=== PATIENT | male | born 1950 | race Caucasian/White ===

== ENCOUNTER 2021-07-25 22:03 | Emergency (ER) | payer MEDICARE, SELFPAY ==
[2021-07-25 22:06] VITALS: BP 157/78; PULSE 99; RESP 17; TEMP 36.2; O2SAT 99
[2021-07-25] MEDS: TETANUS,DIPHTHERIA,AC PERTUSSIS ADULT (0.5 ML) BOOSTRIX IM (23:20)
[2021-07-26 00:24] VITALS: BP 120/67; PULSE 87; RESP 14; O2SAT 96
--- NOTE | 2021-07-26 00:42 | ED.WOUNDLAC ---
HPI - Wound/Laceration General Chief Complaint: Wound/Laceration <LALO Quiroz Last Filed: 07/26/21 02:58> Stated Complaint: left finger laceration <LALO Quiroz Last Filed: 07/26/21 02:58> Time Seen by Provider: 07/25/21 22:12 <LALO Quiroz Last Filed: 07/26/21 02:58> History of Present Illness HPI narrative: 70-year-old [id number] male who presents the emergency department with a laceration to his left second digit 30 minutes prior to arrival. He states he was opening a can of potatoes and the metal top accidentally scraped his finger. He was unable to control the bleeding, so he presented the emergency department. He denies any difficulty moving his finger, numbness or tingling in this digit. States the metal can was clean and intact and did not have any fragments. Tetanus not up-to-date. No blood thinner use. No other injuries sustained in the accident. <LALO Quiroz Last Filed: 07/26/21 02:58> Related Data Home Medications: Home Medications Medication Instructions Recorded Confirmed allopurinol [Zyloprim] 300 mg PO DAILY 04/16/19 04/16/19 amlodipine-benazepril [Lotrel] 5 - 20 cap PO DAILY 04/16/19 04/16/19 budesonide-formoterol [Symbicort] 80 inh INHALATION DAILY 04/16/19 04/16/19 doxycycline hyclate 100 mg PO DAILY 04/16/19 04/16/19 fenofibrate nanocrystallized 145 mg PO DAILY 04/16/19 04/16/19 [Tricor] furosemide [Lasix] 40 mg PO DAILY 04/16/19 04/16/19 <LALO Quiroz Last Filed: 07/26/21 02:58> Allergies/Adverse Reactions: Allergies Allergy/AdvReac Type Severity Reaction Status Date / Time No Known Allergies Allergy Verified 07/25/21 22:09 <LALO Quiroz Last Filed: 07/26/21 02:58> Review of Systems Review of Systems: Gen.: Denies fevers or chills Eyes: Denies eye pain or visual change ENT: Denies congestion Respiratory: Denies shortness of breath or cough CV: Denies chest pain or palpitations GI: Denies abdominal pain nausea, emesis or diarrhea denies burning, urgency, frequency or hematuria Musculoskeletal: Denies back pain or muscle pain, numbness or tingling in fingers Neuro: Denies numbness, tingling, weakness or focal weakness Skin: Reports laceration. Denies rash Except as documented, all other systems reviewed and negative <Hilda Marks PA-C - Last Filed: 07/26/21 02:58> All systems reviewed & are unremarkable except as noted in HPI and below <Hilda Marks PA-C - Last Filed: 07/26/21 02:58> [facility] Past Medical History Medical History: Medical History Alcohol use Asthma Hypertension <Hilda Marks PA-C - Last Filed: 07/26/21 02:58> Social History Social History: Social History Gender identity (if verbalized by the patient): Male <Hilda Marks PA-C - Last Filed: 07/26/21 02:58> Exam Narrative: Gen: Alert, oriented, no acute distress Eyes: EOMI, no icterus Pulm: Respirations even and unlabored, symmetric thorax expansion, no audible stridor or visible cyanosis CV: 2+ radial pulses bilaterally. GI: No distension, no voluntary/involuntary guarding Neuro: Sensation intact to entire hand. AOx4, moves all extremities without apparent difficulty or weakness, follows commands MSK: Patient has full active range of motion in his fingers and hand. Skin: Patient has a 1 and half centimeter laceration to his left second digit just proximal and linear to the proximal interphalangeal joint. Laceration does not cross the joint line. Psych: Normal mood/affect, insight/judgement good, adequate fund of knowledge, recent/remote memory intact <Hilda Marks PA-C - Last Filed: 07/26/21 02:58> Course Course Emergency Course: Dr. John Hodge was assigned to this patient e
== END 2021-07-26 00:25 | disposition home or self-care (01) ==
PROVIDERS: Emergency Provider Emergency Medicine; PCP Internal Medicine
DX: S61.211A Laceration without foreign body of left index finger without damage to nail, initial encounter (principal); Z23 Encounter for immunization; J45.909 Unspecified asthma, uncomplicated; I10 Essential (primary) hypertension; W26.8XXA Contact with other sharp object(s), not elsewhere classified, initial encounter
CPT/HCPCS: 12001; 90471; 90715; 99282

== ENCOUNTER 2022-08-19 10:00 | Outpatient (RCR) | payer MEDICARE, SELFPAY ==
--- NOTE | 2022-06-23 10:44 | PTOPEVAL1 ---
Assessment and note entered by Shirlene Villeda, PT, DPT Evaluation Information Assessment Status Evaluation Diagnosis cervicalgia with radiculopathy Subjective Information Pt states since Jan, he has been having numbness in his R hand and pain in his R biceps. Pt states he has minor pain in his neck but has been told he has a pinched nerve somewhere around his C5-6. Reported Pain Level Pain Score 3: Self Report Assessment PT Clinical Summary Des presents to therapy today for his initial evaluation with a diagnosis of cervicalgia with peripheral neuropathy in his R > L hand. Today he demonstrates active and passive cervical ROM in all direction, as well as a forward head with cervical hyperextension and increased thoracic kyphosis. He reports a decrease in peripheral symptoms with manual cervical distraction this date. Skilled physical therapy services are indicated to improve cervical ROM, improve postural and body awareness, to decreased peripheral symptoms, and to return to baseline function. Plan of Care Interventions Electrical Stimulation,Hot Pack/Cold Pack,Manual Therapy,Mechanical Traction,Neuro Re-education, Patient/Caregiver Educati,Prosthetic Training,Self -Care/Home Management PT Services Indicated Yes Treatment Frequency and 2x/wk for 4 wks Duration These treatments will address the objective and functional deficits as defined above. The patient will be advanced safely and appropriately in order for the patient to progress towards his/her prior level of function. Additional exercises will be introduced and as well as a comprehensive home exercise program upon discharge, if needed, ?to ensure carryover of functional gains achieved in the clinic. This treatment plan has been reviewed and agreement upon by the patient.
--- NOTE | 2022-07-23 10:48 | PTOPPROG ---
Assessment and note entered by Shirlene Villeda, PT, DPT Evaluation Information Assessment Status Progress Diagnosis cervicalgia with radiculopathy Subjective Information Pt states his L hand is about 80% back to normal and his R hand is about 60-70% back to normal. He states his no longer numb, just still tingly at times. He states his fine motor skills have improved on his R as well. Assessment PT Clinical Summary Des presents to therapy today for his progress report following 7 visits of skilled therapy to treat his neck pain with radiculopathy. Today he reports 60-70% improvement in his sensation. He demonstrates improvements in his cervical ROM but this is still decreased from normal values. He continues to requires cueing throughout treatments to correct his posture. Continuation of skilled therapy services are indicated to continue progress ROM, body mechanics, postural awareness, and for a return to baseline function. Plan of Care Interventions Electrical Stimulation,Hot Pack/Cold Pack,Manual Therapy,Mechanical Traction,Neuro Re-education, Patient/Caregiver Educati,Prosthetic Training,Self -Care/Home Management PT Services Indicated Yes Treatment Frequency and 1-2x/wk for 4 wks Duration These treatments will address the objective and functional deficits as defined above. The patient will be advanced safely and appropriately in order for the patient to progress towards his/her prior level of function. Additional exercises will be introduced and as well as a comprehensive home exercise program upon discharge, if needed, ?to ensure carryover of functional gains achieved in the clinic. This treatment plan has been reviewed and agreement upon by the patient.
--- NOTE | 2022-08-10 10:36 | PCPTNOTE ---
Patient called & cancelled scheduled appointment this date due to having a dentist appointment.
--- NOTE | 2022-08-19 10:29 | PTOPDC ---
Assessment and note entered by Shirlene Villeda, PT, DPT Evaluation Information Assessment Status Discharge Diagnosis cervicalgia with radiculopathy Subjective Information Pt states he is so much better than when he started. He states his neck is no longer painful, he has no more throbbing pains in his arms, and his numbness and tingling has improved significantly. He reports no pain medication in the last 2 weeks. He reports 85% improvement in his L hand, and 80% in the R hand. 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 Reported Pain Level Pain Score 1,1: Self Report Assessment PT Clinical Summary Des presents to therapy today for his progress report following 14 visits of skilled therapy to treat his neck pain with radiculopathy. Today he reports 80-85%% improvement in his sensation. His cervical ROM continues to progress slowly and is still slightly decreased from normal. He reports feeling okay to do his exercises on his own to keep progressing and to avoid symptoms starting again. He will be discharged from skilled therapy services at this time. Plan of Care PT Services Indicated No
== END 2022-08-19 10:41 | disposition home or self-care (01) ==
LOC: ANHGOSHPT 10:00
PROVIDERS: PCP Family Medicine; Visit Provider Nurse Practitioner Family
DX: M54.2 Cervicalgia (principal); R20.0 Anesthesia of skin; R20.2 Paresthesia of skin
CPT/HCPCS: 97110; 97112; 97140; 97161

== ENCOUNTER 2024-01-03 10:43 | Outpatient (CLI) | payer MEDICARE, SELFPAY ==
[2024-01-03 13:32] LABS: Basophils Absolute Auto 0.1 K/mm3 (0.0-0.1); Basophils Percent Auto 0.8 % (0.2-1.2); Eosinophils Absolute Auto 0.3 K/mm3 (0-0.3); Eosinophils Percent Auto 2.5 % (0-4.4); Hematocrit 43.5 % (42.0-52.0); Hemoglobin 14.2 g/dL (14.0-18.0); Immature Granulocyte Absolute 0.11 K/mm3 (0.00-0.031); Lymphocytes Absolute Auto 1.61 K/mm3 (0.9-3.2); Lymphocytes Percent Auto 15.1 % (18.3-44.2); Mean Corpuscular HGB Conc 32.6 g/dl (32-36); Mean Corpuscular Hemoglobin 30.4 pg (26-34); Mean Corpuscular Volume 93.1 fl (80-100); Mean Platelet Volume 9.1 fl (7.4-10.4); Monocytes Absolute Auto 0.8 K/mm3 (0.1-0.6); Monocytes Percent Auto 7.9 % (2.6-8.5); Neutrophils Absolute Auto 7.7 K/mm3 (1.3-6.7); Neutrophils Percent Auto 72.7 % (45.5-73.1); Platelet Count Result 383 k/mm3 (150-375); Red Blood Count 4.67 M/mm3 (4.6-6.20); Red Cell Distribution Width 12.8 % (11.5-14.5); White Blood Count 10.7 K/mm3 (4.5-10.0)
[2024-01-03 13:42] LABS: Potassium 4.3 mmol/L (3.4-5.0)
[2024-01-03 13:53] LABS: LDL Cholesterol Direct 95 mg/dL
[2024-01-03 13:59] LABS: Alanine Aminotransferase 28 U/L (6-50); Albumin Level 4.4 g/dL (3.5-5.1); Alkaline Phosphatase 95 U/L (38-126); Anion Gap 9 mmol/L (4-12); Aspartate Amino Transferase 57 U/L (17-59); Bilirubin,Total 0.7 mg/dL (0.2-1.3); Blood Urea Nitrogen 19 mg/dL (9-20); Carbon Dioxide 27 mmol/L (22-30); Chloride 93 mmol/L (98-107); Cholesterol 164 mg/dL (0-200); Estimated Glomerular Filt Rate 54; Glucose 130 mg/dL (65-110); HDL Direct 39 mg/dL; Sodium 129 mmol/L (137-145); Triglycerides 133 mg/dL (<150)
[2024-01-03 14:12] LABS: Prostate Specific Antigen 1.8 ng/mL (< OR = 4.0)
[2024-01-03 14:24] LABS: Microalbumin Urine Random 7.9 mg/L (0-16.7)
[2024-01-03 14:35] LABS: Creatinine Urine 115.4 mg/dL; MALB Creatinine Ratio 6.8 mg/g (0-30)
[2024-01-03 17:07] LABS: Hemoglobin A1C 7.1 % (<5.7)
== END 2024-01-03 10:44 | disposition home or self-care (01) ==
PROVIDERS: PCP Clinical Nurse Specialist; Visit Provider Clinical Nurse Specialist
DX: E11.9 Type 2 diabetes mellitus without complications (principal); E78.5 Hyperlipidemia, unspecified; I10 Essential (primary) hypertension; Z12.5 Encounter for screening for malignant neoplasm of prostate
CPT/HCPCS: 36415; 80053; 80061; 82043; 83036; 84153; 85025; G0103

== ENCOUNTER 2024-01-10 09:40 | Outpatient (CLI) | payer MEDICARE, SELFPAY ==
[2024-01-10 14:06] LABS: Basophils Absolute Auto 0.1 K/mm3 (0.0-0.1); Basophils Percent Auto 0.9 % (0.2-1.2); Eosinophils Absolute Auto 0.2 K/mm3 (0-0.3); Eosinophils Percent Auto 2.2 % (0-4.4); Hematocrit 42.1 % (42.0-52.0); Hemoglobin 13.5 g/dL (14.0-18.0); Immature Granulocyte Absolute 0.12 K/mm3 (0.00-0.031); Immature Granulocyte Percent A 1.2 % (0-0.5); Lymphocytes Absolute Auto 1.37 K/mm3 (0.9-3.2); Lymphocytes Percent Auto 13.6 % (18.3-44.2); Mean Corpuscular HGB Conc 32.1 g/dl (32-36); Mean Corpuscular Hemoglobin 29.7 pg (26-34); Mean Corpuscular Volume 92.5 fl (80-100); Monocytes Absolute Auto 0.9 K/mm3 (0.1-0.6); Monocytes Percent Auto 8.6 % (2.6-8.5); Neutrophils Absolute Auto 7.4 K/mm3 (1.3-6.7); Neutrophils Percent Auto 73.5 % (45.5-73.1); Platelet Count Result 423 k/mm3 (150-375); Red Blood Count 4.55 M/mm3 (4.6-6.20); Red Cell Distribution Width 12.6 % (11.5-14.5); White Blood Count 10.1 K/mm3 (4.5-10.0)
[2024-01-10 14:18] LABS: Anion Gap 10 mmol/L (4-12); Blood Urea Nitrogen 17 mg/dL (9-20); Calcium 10.2 mg/dL (8.4-10.2); Carbon Dioxide 26 mmol/L (22-30); Chloride 101 mmol/L (98-107); Estimated Glomerular Filt Rate 54; Glucose 132 mg/dL (65-110); Potassium 4.5 mmol/L (3.4-5.0); Sodium 137 mmol/L (137-145)
[2024-01-10 16:09] LABS: Hemoglobin A1C 6.8 % (<5.7)
== END 2024-01-10 09:41 | disposition home or self-care (01) ==
LOC: ANHGOSHLAB 09:41
PROVIDERS: PCP Clinical Nurse Specialist; Visit Provider Clinical Nurse Specialist
DX: N28.9 Disorder of kidney and ureter, unspecified (principal); D72.829 Elevated white blood cell count, unspecified; E11.9 Type 2 diabetes mellitus without complications; I10 Essential (primary) hypertension
CPT/HCPCS: 36415; 80048; 83036; 85025

== ENCOUNTER 2024-03-28 08:30 | Emergency (ER) | payer MEDICARE, SELFPAY ==
[2024-03-28 08:42] VITALS: BP 138/54; PULSE 103; RESP 16; TEMP 36.4; O2SAT 100
--- NOTE | 2024-03-28 08:57 | ED.EXTPRO ---
HPI - Extremity Problem General Chief complaint: Extremity Problem,Nontraumatic Stated complaint: Swollen Right Leg Time Seen by Provider: 03/28/24 08:49 Source: patient and RN notes reviewed Mode of arrival: ambulatory Limitations: no limitations History of Present Illness HPI Narrative: Patient presents today complaining sponginess in the bilateral knees x1 month with right knee swelling x4 days. Denies injury or trauma. He had taken some ibuprofen but read that it could make him to retain fluid so stopped this. Related Data Home Medications ?Medication ?Instructions ?Recorded ?Confirmed ?Last Taken ?Type acyclovir 5 % topical cream 1 applic topical ONCE 12/28/23 02/07/24 Unknown History (Zovirax) fexofenadine 60 mg tablet (Maria L 60 mg PO Q12H 12/28/23 02/07/24 Unknown History Allergy) multivitamin 1 tablet PO DAILY 12/28/23 02/07/24 Unknown History Allergies Allergy/AdvReac Type Severity Reaction Status Date / Time No Known Allergies Allergy Verified 03/28/24 08:42 Review of Systems Review of Systems: CONSTITUTIONAL: Denies body aches, fever, chills, or sweats. EYES: Denies visual changes, redness, or discharge. ENT: Denies rhinorrhea, congestion, sore throat, or otalgia. CARDIOVASCULAR: Denies chest pain, palpitations, or edema. RESPIRATORY: Denies cough or dyspnea. GASTROINTESTINAL: Denies abdominal pain, nausea, vomiting, or diarrhea. GENITOURINARY: Denies dysuria or hematuria. SKIN: Denies rash, itching, or wounds. MUSCULOSKELETAL: Denies back pain, or myalgia.+ right knee pain and swelling NEUROLOGIC: Denies headache, numbness, tingling, or weakness. PSYCH: Denies depression or anxiety. [facility] Past Medical History Medical History Hypertriglyceridemia Basal cell carcinoma Abnormal skin growth Allergies Alcohol use Asthma Hypertension Family History Family History Father Heart disease Mother Cerebrovascular accident Social History Social History Social History: Caffeine-coffee/tea Smoking status: Unknown if ever smoked Alcohol intake: current Alcohol use details: rarely Substance use: never Substance use type: does not use Do You Feel Safe in your Home?: Yes Lack of Transportation: No Lack of Food: Never True Current Housing: I Have Housing Concerned About Future Housing: No Difficulty Paying Gas/Electric Bills: No Difficulty Paying for Meds: No Currently Unemployed: No Education: Associate Degree Difficulty w/ Childcare or Family Care: No Living arrangements: with family Occupation/Education: retired Gender identity (if verbalized by the patient): Male Sexual Orientation (if Verbalized by the Patient): Straight or Heterosexual Comments At time of signature, I have reviewed and agree with nursing past medical, surgical, social and family history unless otherwise noted. Please see nursing chart for further information. There is no relevant family history pertinent to the presenting complaint Exam Narrative: GENERAL: Well-appearing, well-nourished, and in no acute distress. HEAD: Normocephalic, atraumatic. EYES: EOMI. No redness or drainage. Conjunctivae normal. ENT: Mucous membranes pink and moist. NECK: Normal AROM. CHEST: No respiratory distress. EXTREMITIES: Right knee: Obvious knee effusion noted. No redness noted. Full range of motion of the knee noted with some increased pain. Distal sensation diminished, but baseline for patient due to neuropathy. Posterior tibial pulse SKIN: Warm, dry, no rash. Capillary refill normal. Normal skin turgor. NEURO: No focal deficits. Alert and oriented x3. Gait steady. PSYCH: Normal affect. No signs of depression or anxiety. Course Course Level of Care: Express Care Visit Vital Signs Vital signs: Vital Signs Temperature 97.6 F 03/28/24 08:42 Pulse Rate 103 H 03/28/24 08:42 Respiratory Rate 16 03/28/24 08:42 Blood Pressure 138/54 L 03/28/24 08:42 Pulse Oximetry 100 03/28/24 08:42 Temperature 97.6 F 03/28/24 08:42 Pulse Rate 103 H 03/28/24 08:42 Respiratory Rate 16 03/28/24 08:42 Blood Pressure 138/54 L 03/28/24 08:42 Pulse Oximetry 100 03/28/24 08:42 Reviewed MDM - Extremity (Nontraumatic) MDM Narrative Medical decision making narrative: Patient has obvious knee effusion. Recommend PCP or orthopedic follow-up for further evaluation and treatment. Anticipatory guidance given Differential Diagnosis Differential diagnosis: Likely other (Osteoarthritis, knee effusion, Paulino cyst) Critical Care Time Critical Care Time Critical Care Time: No Discharge Plan Discharge Clinical Impression: Knee effusion, right Patient Disposition: Home, Self-Care Condition: Stable Instructions: Swollen Knee Joint (ED) Additional Instructions: You have a fluid collection in your right knee joint. Please ice and elevate your knee. Rest and schedule a follow-up visit with your PCP or orthopedic physician for further evaluation and treatment. Continue your Lasix as prescribed. Take Tylenol for pain. Your blood pressure was elevated above 120/80 today at Urgent Care. This puts you above the threshold for follow up. Please schedule a followup visit with your personal physician as soon as possible, for further evaluation and treatment. Even blood pressure exceeding 120/80 may indicate pre-hypertension. Patient Language: Latvian Prescriptions: No Action budesonide-formoterol [Symbicort] 80-4.5 mcg/actuation HFA aerosol inhaler 2 puff inhalation Q12H Qty: 10.2 1RF sildenafil 100 mg tablet 100 mg PO DAILY PRN (Reason: sexual activity) Qty: 14 0RF Rx Instructions: administer 30 minutes to 4 hours before activity multivitamin Tablet 1 tablet PO DAILY fexofenadine [Maria L Allergy] 60 mg tablet 60 mg PO Q12H acyclovir [Zovirax] 5 % cream 1 applic topical ONCE allopurinol 300 mg tablet 300 mg PO DAILY Qty: 90 1RF amlodipine-benazepril [Lotrel] 5-20 mg capsule 1 cap PO DAILY Qty: 90 1RF fenofibrate nanocrystallized [Tricor] 145 mg tablet 145 mg PO DAILY Qty: 90 1RF rosuvastatin [Crestor] 20 mg tablet 20 mg PO DAILY Qty: 90 1RF Rx Instructions: Dose increased. furosemide 20 mg tablet 20 mg PO QAM Qty: 90 1RF Follow-up/Referrals: Hayder Evans MD [Physician] - Sobeida Montez FNP-C [Primary Care Provider] - Time of Disposition: 09:01
== END 2024-03-28 09:06 | disposition home or self-care (01) ==
PROVIDERS: Emergency Provider Nurse Practitioner; PCP Clinical Nurse Specialist
DX: M25.461 Effusion, right knee (principal); E78.1 Pure hyperglyceridemia; I10 Essential (primary) hypertension; J45.909 Unspecified asthma, uncomplicated; Z85.828 Personal history of other malignant neoplasm of skin
CPT/HCPCS: 99211; G0463

== ENCOUNTER 2024-03-30 10:35 | Outpatient (CLI) | payer MEDICARE, SELFPAY ==
--- NOTE | ~2024-03-30 | XR_ITS ---
XR knee RT 3V 03/30/2024 10:52 Indication: Right knee pain Procedure: 3 views right knee Comparison: No prior studies for comparison. Findings: Mild tricompartment osteoarthritis. Small joint effusion. No fracture, subluxation or dislo cation. Impression: 1: Mild osteoarthritis of the right knee. Reviewed, dictated and finalized at location B. [employer] Impression: 1: Mild osteoarthritis of the right knee.
== END 2024-03-30 10:36 | disposition home or self-care (01) ==
LOC: GOSHIMG 10:36
PROVIDERS: PCP Internal Medicine; Visit Provider Clinical Nurse Specialist
DX: M17.11 Unilateral primary osteoarthritis, right knee (principal)
CPT/HCPCS: 73562

== ENCOUNTER 2024-04-05 16:19 | Outpatient (NON) | payer MEDICARE, SELFPAY ==
[2024-04-05 17:38] LABS: Appearance Synovial Fluid Cloudy (Clear); Color Synovial Fluid Red (Colorless); Lymphocytes Synovial Fluid 20 %; Neutrophils Synovial Fluid 80 % (0-25); Nucleated Cell Synovial Fluid 6199 /uL (0-200); RBC Synovial Fluid 60000 /uL (0-0); Source Synovial Fluid Rt Knee Syn Fluid
[2024-04-05 17:48] LABS: Crystals Synovial Fluid None Seen (None Seen)
== END 2024-04-05 16:20 | disposition home or self-care (01) ==
LOC: ANHLAB 16:20
PROVIDERS: PCP Clinical Nurse Specialist; Visit Provider Orthopaedic Surgery
DX: M17.11 Unilateral primary osteoarthritis, right knee (principal)
CPT/HCPCS: 89051; 89060

== ENCOUNTER 2024-04-06 11:05 | Outpatient (CLI) | payer MEDICARE, SELFPAY ==
[2024-04-06 12:08] LABS: Uric Acid 4.6 mg/dL (3.5-8.5)
== END 2024-04-06 11:06 | disposition home or self-care (01) ==
LOC: ANHGOSHLAB 11:07
PROVIDERS: PCP Clinical Nurse Specialist; Visit Provider Orthopaedic Surgery
DX: M25.561 Pain in right knee (principal); M25.461 Effusion, right knee; M17.11 Unilateral primary osteoarthritis, right knee
CPT/HCPCS: 36415; 84550

== ENCOUNTER 2024-04-27 10:26 | Outpatient (CLI) | payer MEDICARE, SELFPAY ==
[2024-04-27 17:48] LABS: Basophils Absolute Auto 0.1 K/mm3 (0.0-0.1); Eosinophils Absolute Auto 0.2 K/mm3 (0-0.3); Eosinophils Percent Auto 2.2 % (0-4.4); Hematocrit 40.2 % (42.0-52.0); Hemoglobin 12.7 g/dL (14.0-18.0); Immature Granulocyte Absolute 0.16 K/mm3 (0.00-0.031); Immature Granulocyte Percent A 1.6 % (0-0.5); Lymphocytes Absolute Auto 1.73 K/mm3 (0.9-3.2); Lymphocytes Percent Auto 17.7 % (18.3-44.2); Mean Corpuscular HGB Conc 31.6 g/dl (32-36); Mean Corpuscular Hemoglobin 28.1 pg (26-34); Mean Corpuscular Volume 88.9 fl (80-100); Mean Platelet Volume 8.9 fl (7.4-10.4); Monocytes Absolute Auto 0.7 K/mm3 (0.1-0.6); Monocytes Percent Auto 7.4 % (2.6-8.5); Neutrophils Absolute Auto 6.9 K/mm3 (1.3-6.7); Neutrophils Percent Auto 70.1 % (45.5-73.1); Platelet Count Result 430 k/mm3 (150-375); Red Blood Count 4.52 M/mm3 (4.6-6.20); Red Cell Distribution Width 15.7 % (11.5-14.5); White Blood Count 9.8 K/mm3 (4.5-10.0)
[2024-04-27 18:30] LABS: Anion Gap 11 mmol/L (4-12); Blood Urea Nitrogen 15 mg/dL (9-20); Calcium 10.1 mg/dL (8.4-10.2); Carbon Dioxide 28 mmol/L (22-30); Chloride 100 mmol/L (98-107); Estimated Glomerular Filt Rate > 60; Glucose 121 mg/dL (65-110); Potassium 4.4 mmol/L (3.4-5.0); Sodium 139 mmol/L (137-145)
[2024-04-27 20:17] LABS: Hemoglobin A1C 6.6 % (<5.7)
== END 2024-04-27 10:27 | disposition home or self-care (01) ==
LOC: ANHGOSHLAB 10:27
PROVIDERS: PCP Clinical Nurse Specialist; Visit Provider Clinical Nurse Specialist
DX: D72.829 Elevated white blood cell count, unspecified (principal); I10 Essential (primary) hypertension; N28.9 Disorder of kidney and ureter, unspecified; E11.9 Type 2 diabetes mellitus without complications
CPT/HCPCS: 36415; 80048; 83036; 85025

== ENCOUNTER 2025-01-03 10:39 | Outpatient (CLI) | payer MEDICARE, SELFPAY ==
[2025-01-03 17:20] LABS: Hematocrit 39.1 % (42.0-52.0); Hemoglobin 12.4 g/dL (14.0-18.0); Immature Granulocyte Percent A 1.6 % (0-0.5); Lymphocytes Absolute Auto 1.43 K/mm3 (0.9-3.2); Mean Corpuscular HGB Conc 31.7 g/dl (32-36); Mean Corpuscular Hemoglobin 27.2 pg (26-34); Mean Corpuscular Volume 85.7 fl (80-100); Nucleated Red Blood Cells Absolute Auto 0.000 K/mm3 (0.0-0.012); Nucleated Red Blood Cells Perc 0.0 % (0.0-0.2); Platelet Count Result 508 k/mm3 (150-375); Red Blood Count 4.56 M/mm3 (4.6-6.20); White Blood Count 11.1 K/mm3 (4.5-10.0)
[2025-01-03 17:23] LABS: Alanine Aminotransferase 30 U/L (6-50); Albumin Level 3.9 g/dL (3.5-5.1); Alkaline Phosphatase 140 U/L (38-126); Anion Gap 9 mmol/L (4-12); Aspartate Amino Transferase 58 U/L (17-59); Bilirubin,Total 0.6 mg/dL (0.2-1.3); Blood Urea Nitrogen 16 mg/dL (9-20); Calcium 9.9 mg/dL (8.4-10.2); Carbon Dioxide 24 mmol/L (22-30); Chloride 101 mmol/L (98-107); Cholesterol 173 mg/dL (0-200); Estimated Glomerular Filt Rate > 60; Glucose 132 mg/dL (65-110); HDL Direct 30 mg/dL; Potassium 3.9 mmol/L (3.4-5.0); Sodium 134 mmol/L (137-145); Total Protein 7.3 g/dL (6.3-8.2); Triglycerides 142 mg/dL (<150)
[2025-01-03 17:59] LABS: Prostate Specific Antigen 1.6 ng/mL (< OR = 4.0)
[2025-01-03 18:11] LABS: Hemoglobin A1C 6.8 % (<5.7)
[2025-01-03 18:13] LABS: MALB Creatinine Ratio < 19.9 mg/g (0-30)
== END 2025-01-03 10:40 | disposition home or self-care (01) ==
LOC: ANHGOSHLAB 10:42
PROVIDERS: PCP Clinical Nurse Specialist; Visit Provider Clinical Nurse Specialist
DX: E11.9 Type 2 diabetes mellitus without complications (principal); Z12.5 Encounter for screening for malignant neoplasm of prostate; I10 Essential (primary) hypertension; E78.5 Hyperlipidemia, unspecified
CPT/HCPCS: 36415; 80053; 80061; 82043; 83036; 84153; 85025; G0103

== ENCOUNTER 2025-01-22 10:11 | Outpatient (CLI) | payer MEDICARE, SELFPAY ==
[2025-01-22 13:08] LABS: Uric Acid 5.1 mg/dL (3.5-8.5)
[2025-01-23 14:09] LABS: Anti-CCP Ab, IgG/IgA 7 units (0-19)
[2025-01-23 16:08] LABS: ANA by IFA Rfx Titer/Pattern Negative (.)
== END 2025-01-22 10:12 | disposition home or self-care (01) ==
LOC: ANHGOSHLAB 10:13
PROVIDERS: PCP Clinical Nurse Specialist; Visit Provider Orthopaedic Surgery
DX: M17.0 Bilateral primary osteoarthritis of knee (principal); M25.461 Effusion, right knee; M25.462 Effusion, left knee
CPT/HCPCS: 36415; 84550; 85652; 86038; 86200; 86430

== ENCOUNTER 2025-03-15 00:48 | Day surgery (SDC) | payer MEDICARE, SELFPAY ==
[2025-02-26 13:34] VITALS: BMI 27.9
[2025-03-15 06:55] VITALS: BP 160/66; PULSE 91; RESP 20; TEMP 36.6; O2SAT 95
[2025-03-15] MEDS: LACTATED RINGERS 1,000 ML 150 ML IV CONT (07:09)
--- NOTE | 2025-03-15 07:20 | PM.IMHP2 ---
H&P: HPI History of Present Illness Date/Time: 03/15/25 07:20 Chief Complaint: History of colon polyps Narrative: The patient has a history of colonic polyps, the last colonoscopy was in 2019. Review of Systems Review of Systems: All systems reviewed & are unremarkable except as noted in HPI and below PMFSH Past Medical History Medical History Hypertriglyceridemia Basal cell carcinoma Abnormal skin growth Allergies Alcohol use Asthma Hypertension Surgical History Surgical History History of hernia repair Family History Family History Father Heart disease Mother Cerebrovascular accident Social History Social History Social History: Caffeine-coffee/tea Smoking status: Never smoker Alcohol intake: never Alcohol use details: Pt states he stopped drinking over a year ago. Substance use: never Substance use type: does not use Current Housing: Decline to Answer Concerned About Future Housing: Decline to Answer Difficulty Paying Gas/Electric Bills: Decline to Answer Difficulty Paying for Meds: Decline to Answer Currently Unemployed: Decline to Answer Education: Decline to Answer Difficulty w/ Childcare or Family Care: Decline to Answer Living arrangements: with family Occupation/Education: retired Gender identity (if verbalized by the patient): Male Sexual Orientation (if Verbalized by the Patient): Straight or Heterosexual Meds Home Medications and Allergies Home Medications ?Medication ?Instructions ?Recorded ?Confirmed ?Type fexofenadine 60 mg tablet (Maria L 60 mg PO DAILY 12/28/23 03/15/25 History Allergy) multivitamin 1 tablet PO DAILY 12/28/23 03/15/25 History allopurinol 300 mg tablet 300 mg PO DAILY #90 tabs 01/09/25 03/15/25 Rx amlodipine 5 mg-benazepril 20 mg 1 cap PO DAILY #90 caps 01/09/25 03/15/25 Rx capsule (Lotrel) fenofibrate nanocrystallized 145 145 mg PO DAILY #90 tabs 01/09/25 03/15/25 Rx mg tablet (Tricor) furosemide 20 mg tablet 20 mg PO QAM #90 tabs 01/09/25 02/26/25 Rx rosuvastatin 20 mg tablet (Crestor) 20 mg PO DAILY #90 tabs 01/09/25 03/15/25 Rx acyclovir 5 % topical cream 1 applic topical .5X/DAY PRN flare 02/26/25 02/26/25 History (Zovirax) up Allergies Allergy/AdvReac Type Severity Reaction Status Date / Time No Known Allergies Allergy Verified 03/15/25 06:53 Vital Signs Vital Signs - 24 hr 03/15/25 06:55 Temperature 97.9 F Pulse Rate 91 Respiratory Rate 20 Blood Pressure 160/66 H Pulse Oximetry 95 Oxygen Delivery Room Air Exam Const: General: cooperative and healthy appearing Resp: Effort & Inspection: normal respiratory effort and able to speak in complete sentences Auscultation: clear to auscultation bilaterally Cardio: Rate: regular rate Rhythm: regular rhythm GI: Inspection: normal to inspection GI Palp: No No hepatosplenomegaly present Auscultation: normal bowel sounds Rectal Exam: deferred Skin: General skin exam: normal color Psych: Appearance: grossly normal Mental Status: mental status grossly normal Assessment and Plan Assessment and plan (1) History of colonic polyps: Code(s): Z86.0100 - Personal history of colon polyps, unspecified Status: Acute Assessment and Plan: The patient is deemed a good candidate for the procedure. Consent signed. Will proceed. Prior Studies I have reviewed the following patient records and this information was taken into consideration when formulating the assessment and plan.: previous labs, previous ER visits, previous hospitalizations and previous clinic visits
--- NOTE | 2025-03-15 07:26 | P.PNAN_ITS ---
Anes - Initial Pre Proc Eval Procedure: Operation Date: 03/15/25 08:00 Proposed Procedures p Diagnostic Colonoscopy - Tay Ignacio MD Date/Time: 03/15/25 07:26 Surgeon: Tay Ignacio MD Pre Op Diagnosis: Anemia, unspecified Patient Data Age: 74 Gender: M Height: 1.83 m Weight: 92.2 kg Last Vital Signs Temp 97.9 F 03/15/25 06:55 Pulse 91 03/15/25 06:55 Resp 20 03/15/25 06:55 BP 160/66 H 03/15/25 06:55 Pulse Ox 95 03/15/25 06:55 O2 Del Method Room Air 03/15/25 06:55 Allergies Allergy/AdvReac Type Severity Reaction Status Date / Time No Known Allergies Allergy Verified 03/15/25 06:53 Home Medications ?Medication ?Instructions ?Recorded ?Confirmed ?Type fexofenadine 60 mg tablet (Maria L 60 mg PO DAILY 12/1003/15/25 History Allergy) multivitamin 1 tablet PO DAILY 12/28/23 1 05/16/24 History allopurinol 300 mg tablet 300 mg PO DAILY #90 tabs 05/0503/15/25 Rx amlodipine 5 mg-benazepril 20 mg 1 cap PO DAILY #90 ca ps 01/09/25 03/15/25 Rx capsule (Lotrel) fenofibrate nanocrystallized 145 145 mg PO DAILY #90 t abs 01/09/25 03/15/25 Rx mg tablet (Tricor) furosemide 20 mg tablet 20 mg PO QAM #90 tabs 02/26/25 Rx rosuvastatin 20 mg tablet (Crestor) 20 mg PO DAILY #90 tabs 01/09/25 03/15/25 Rx acyclovir 5 % topical cream 1 applic topical .5X/DAY P RN flare 02/26/25 02/26/25 History (Zovirax) up Patient hx anesthesia problems: none Family hx anesthesia problems: none Results Review: All pre-operative results and documents have been reviewed as part of the pre- operative evaluation. [facility] Past Medical History Medical History Hypertriglyceridemia Basal cell carcinoma Abnormal skin growth Allergies Alcohol use Asthma Hypertension Surgical History Surgical History History of hernia repair Family History Family History Father Heart disease Mother Cerebrovascular accident Social History Social History Social History: Caffeine-coffee/tea Smoking status: Never smoker Alcohol intake: never Alcohol use details: Pt states he stopped drinking over a year ago. Substance use: never Substance use type: does not use Current Housing: Decline to Answer Concerned About Future Housing: Decline to Answer Difficulty Paying Gas/Electric Bills: Decline to Answer Difficulty Paying for Meds: Decline to Answer Currently Unemployed: Decline to Answer Education: Decline to Answer Difficulty w/ Childcare or Family Care: Decline to Answer Living arrangements: with family Occupation/Education: retired Gender identity (if verbalized by the patient): Male Sexual Orientation (if Verbalized by the Patient): Straight or Heterosexual Anes - Eval Final PreProcedure Day of Procedure 03/15/25 07:26 Patient weight: normal Lungs: normal air movement Airway: Mallampati scale class II Neurological: alert and oriented Last oral intake: >/= 8 hours ASA classification: II Emergent: no Anesthetic plan: proceed Anesthesia type and monitoring: general GIVS and standard monitoring Results Review: All pre-operative results and documents have been reviewed as part of the pre- operative evaluation. HTN, hyperlipidemia. Active, no cp or sob w 1-2 fos. Informed Consent: The patient's anesthetic plan and its attendant risks and benefits were discussed with the patient/family/POA. Questions were solicited and answers provided to the satisfaction of the patient/family/POA.
[2025-03-15] MEDS: SIMETHICONE ORAL SUSPENSION 20 MG/0.3 ML 30 ML BOTTLE 0.6 ML IRRIGATION (08:03)
--- NOTE | 2025-03-15 08:10 | S_PTH ---
PATIENT: Des Brar LOC: [facility] U#:[id number] AGE/SX: 74/M ROOM: RE03/15/[address]: Tay Ignacio MD : 1950 BED: DIS: 03/15/2025 SPEC #: [id number] RECD: 03/15/25 08:52 STATUS: COOKIE REQ #: [id number] YOSEPH: 03/15/25 08:[address]: Tay Ignacio DEPT: [facility] Surgical RECD BY: Carey Butler ENTERED: 03/15/25 08:53 SP TYPE: Surgical OTHR DR: Sobeida Montez, MATTHEW Tissues: A - Colon Polypectomy B - Colon Polypectomy Procedures: Hematoxylin and Eosin Stain Gross and Microscopic Level 4
[2025-03-15 08:14] VITALS: BP 123/67; PULSE 85; RESP 25; O2SAT 100
[2025-03-15 08:24] VITALS: BP 131/73; PULSE 82; RESP 14; O2SAT 100
[2025-03-15 08:34] VITALS: BP 134/79; PULSE 81; RESP 18; O2SAT 100
== END 2025-03-15 08:46 | disposition home or self-care (01) ==
PROVIDERS: PCP Clinical Nurse Specialist; Referring Provider Clinical Nurse Specialist; Visit Provider Internal Medicine Gastroenterology
PROC: 0DJD8ZZ Inspection of Lower Intestinal Tract, Via Natural or Artificial Opening Endoscopic (ICD-10-PCS; CPT 45378; principal; 2025-03-15 08:00)
DX: Z12.11 Encounter for screening for malignant neoplasm of colon (principal); D12.2 Benign neoplasm of ascending colon; D12.3 Benign neoplasm of transverse colon; K57.30 Diverticulosis of large intestine without perforation or abscess without bleeding
CPT/HCPCS: 45385; 88305; J2003; J2704; J7120